=== PATIENT | female | born 1950 | race Caucasian/White ===

== ENCOUNTER 2018-06-04 08:33 | Day surgery (SDC) | payer MEDICARE, OTHER ==
[~2018-06-04 08:33] MED LIST: ALBIPROI; ALBU.083IS; AZIT250 PO; BUDE6HFA INH; CALCAVITDA; CEPH500 PO; CETI10; CHOL10002; DEXL60CA3 PO; FISH1000; FLUT.05NI; LOSA25 PO; PRED10 PO; TIOT18 INH; UBID10; Vitamin C100 M1
[2018-06-04 10:35] LABS: Performing Lab VERACYTE; Test Name FNA
[2018-06-10 07:35] LABS: Result SEE PATHOTH RESULTS
== END 2018-06-04 22:50 | disposition home or self-care (01) ==
LOC: US 08:33
PROVIDERS: Family Medicine
PROC: 0GBG3ZX Excision of Left Thyroid Gland Lobe, Percutaneous Approach, Diagnostic (ICD-10-PCS; principal; 2018-06-04)
DX: E04.1 Nontoxic single thyroid nodule (principal); E07.89 Other specified disorders of thyroid; R93.8 Abnormal findings on diagnostic imaging of other specified body structures
CPT/HCPCS: 60100; 76942

== ENCOUNTER 2021-01-20 09:04 | Day surgery (SDC) | payer MEDICARE, BC ==
[~2021-01-20] VITALS: Ht 165.1 cm; Wt 85.2 kg
[2021-01-20] MEDS ORDERED: ASPI81CH (10:09)
[2021-01-20] MEDS ORDERED: TIOT18 (10:10)
--- NOTE | 2021-01-20 11:05 | NUR ---
01/20/21 3037 Kaylin Rodriguez PT. VERBALIZES SHE IS 71 & HER BODY JUST HURTS, SHE HAS A BAD LEFT KNEE. THIS IS HER RESPONSE TO ASKING HER IF SHE HAS PAIN.
== END 2021-01-20 12:07 | disposition home or self-care (01) ==
LOC: ORSCSDS 09:04
PROVIDERS: Internal Medicine Gastroenterology
PROC: 0DBP8ZX Excision of Rectum, Via Natural or Artificial Opening Endoscopic, Diagnostic (ICD-10-PCS; principal; 2021-01-20 10:45)
PROC: 0DBK8ZX Excision of Ascending Colon, Via Natural or Artificial Opening Endoscopic, Diagnostic (ICD-10-PCS; principal; 2021-01-20 10:45)
DX: Z12.11 Encounter for screening for malignant neoplasm of colon (principal); Z86.010 Personal history of colon polyps; D12.2 Benign neoplasm of ascending colon; K62.1 Rectal polyp; K57.30 Diverticulosis of large intestine without perforation or abscess without bleeding; Z80.0 Family history of malignant neoplasm of digestive organs; K21.9 Gastro-esophageal reflux disease without esophagitis; E66.9 Obesity, unspecified; Z68.32 Body mass index [BMI] 32.0-32.9, adult; Z79.899 Other long term (current) drug therapy
CPT/HCPCS: J2704; J7120

== ENCOUNTER → 2022-06-19 | Outpatient (CLI) | payer MEDICARE, BC ==
[~2022-06-19] MED LIST changes: +ASPI81CH; +TIOT18
[2022-06-20 10:46] LABS: Candida species (DNA Probe) Negative (NEGATIVE); G. vaginalis (DNA Probe) Negative (NEGATIVE); T. vaginalis (DNA Probe) Negative (NEGATIVE)
== END | disposition home or self-care (01) ==
LOC: LAB 13:40 → LAB SHORT 13:40
PROVIDERS: Family Medicine
DX: N76.0 Acute vaginitis (principal)
CPT/HCPCS: 87480; 87510; 87660

== ENCOUNTER → 2022-09-04 | Outpatient (CLI) | payer MEDICARE, BC ==
[~2022-09-04] MED LIST changes: +ALBU8HFA2 INH; -ASPI81CH; +ASPI81CH PO; -CHOL10002; +ESTRADIOL CREAM VAG; +FISH OIL-VIT D1 EACH PO; -FISH1000; +Nexium40 MG PO; +TRELEGY ELLIPT1 EAC1 INH; +VITAMIN D310 MC4 PO; -Vitamin C100 M1; +Vitamin C100 M1 PO
[2022-09-05 13:15] LABS: Candida species (DNA Probe) Negative (NEGATIVE); G. vaginalis (DNA Probe) Positive (NEGATIVE); T. vaginalis (DNA Probe) Negative (NEGATIVE)
== END | disposition home or self-care (01) ==
LOC: LAB SHORT 13:38 → LAB 13:38
PROVIDERS: Family Medicine
DX: L29.3 Anogenital pruritus, unspecified (principal)
CPT/HCPCS: 87480; 87510; 87660